=== PATIENT | female | born 1940 | race Caucasian/White ===

== ENCOUNTER → 2019-04-19 | Outpatient (CLI) | payer MEDICARE ==
--- NOTE | 2019-04-19 14:27 | XR ---
EXAMINATION TYPE: XR chest 2V DATE OF EXAM: 04/19/2019 COMPARISON: NONE TECHNIQUE: PA and lateral views submitted. HISTORY: Pain FINDINGS: The lungs are clear and there is no pneumothorax, pleural effusion, or focal pneumonia. Hyperinflat ion suggests COPD. Degenerative change of the spine. Coarsened interstitium noted. Mild diffuse osteo penia IMPRESSION: 1. COPD with no definite acute process. Coarsened interstitium likely chronic correlate for underlyin g chronic interstitial lung disease. Bronchitis in the differential diagnosis.
== END | disposition home or self-care (01) ==
LOC: RADXRMAIN 13:39
PROVIDERS: ATTEND Internal Medicine
DX: J44.9 Chronic obstructive pulmonary disease, unspecified (principal)
CPT/HCPCS: 71046

== ENCOUNTER → 2023-09-16 | Outpatient (CLI) | payer MEDICARE ==
--- NOTE | 2023-09-16 17:05 | US ---
EXAMINATION TYPE: US arterial LE single level DATE OF EXAM: 09/16/2023 2:00 PM CLINICAL INDICATION: Female, 83 years old with history of I10 HTN R23.0 CYANOSIS; purple feet with nu mbness. History of: Smoker: No Hypertension: No Diabetic: No Hyperlipidemia: No TIA/CVA: No Previous Vascular Surgery: No CAD: No PA: No Vascular Ulcers: No Claudication: No Gangrene: No Doppler Waveforms: Right: Multiphasic, monophasic waveform involving the digit Left: Multiphasic, monophasic waveform involving the digit Right Brachial Pressure: 142 Left Brachial Pressure: 144 Ankle-Brachial Indices: Right: 1.29 Left: 1.20 (Vessel hardening > 1.4; Normal 0.9 - 1.4, Moderate 0.7 - 0.9, Severe 0.5-0.7) Toe Brachial Indices: Right: 0.43 Left: 0.72 IMPRESSION: Normal ankle-brachial indices bilaterally.
== END | disposition home or self-care (01) ==
LOC: RADUSWWP 13:32
PROVIDERS: ATTEND Family Medicine
DX: I10 Essential (primary) hypertension (principal); R23.0 Cyanosis
CPT/HCPCS: 93922